=== PATIENT | male | born 1990 ===

== ENCOUNTER 2016-10-19 03:41 | Emergency (ER) | payer OTHER ==
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
[2016-10-19] MEDS ORDERED: Oxycodone/Acetaminophen 5/325 mg Tab PO STA (04:58)
[2016-10-19] MEDS ORDERED: Oxycodone/Acetaminophen 5/325 mg Tab ONE (05:02)
[2016-10-19 05:06] VITALS: BP 136/89; PULSE 96; RESP 16; TEMP 98.4
[2016-10-19 05:41] VITALS: O2SAT 99
--- NOTE | 2016-10-19 09:55 | RAD ---
PROCEDURE: Left Hand Radiographs. HISTORY: trauma COMPARISON: None. FINDINGS: BONES: Fracture base 4th metatarsal with the small fragment seen dorsally and proximally. There appears to be dorsal dislocation of the 4th metacarpal with respect to the hamate bone. . In addition, there appears to be a fracture of the base of the 5th metatarsal as well. JOINTS: Normal. No osteoarthritic changes. SOFT TISSUES: Normal. OTHER FINDINGS: None. IMPRESSION: Fracture base of the 4th metatarsal with dorsal dislocation of the proximal aspect of the 4th metatarsal with respect to the hamate bone. In addition, there also appears to be fracture of the base of the 5th metatarsal. .
--- NOTE | 2016-10-19 16:10 | CT ---
PROCEDURE: CT scan of the left hand/ wrist 10/19/2016 HISTORY: left hand injury COMPARISON: Correlation made with concurrent radiographs left hand TECHNIQUE: Contiguous helical/ transaxial sections of the left hand wrist performed. Additional 2 dimensional sagittal and coronal reformats provided. Radiation dose: Total exam DLP = 219.03 mGy-cm. This CT exam was performed using one or more of the following dose reduction techniques: Automated exposure control, adjustment of the mA and/or kV according to patient size, and/or use of iterative reconstruction technique. FINDINGS: The current study reveals comminuted impacted intra-articular fracture base of the 4th metacarpal with dorsal subluxation/ dislocation of the proximal 4th metacarpal with respect to the hamate. Also appears to be mild impaction of the dorsal distal cortical surface of the hamate abutting the dislocated base 5th metacarpal with tiny fracture fragments which could be from the hamate however small fragments arising from the base of the 5th metacarpal not excluded. There is surrounding/ adjacent soft tissue swelling with infiltration/edema fluid and possibly a small amount of subcutaneous hemorrhage within the soft most pronounced dorsally. IMPRESSION: Fracture base of the 4th metacarpal with dorsal subluxation - dislocation. There also appears to be small impaction type fracture of the hamate with adjacent on bony fragments likely from the hamate however a possible impaction type fracture base of the 5th metacarpal not excluded. There is also appears to be dorsal dislocation of the 5th metacarpal. Surrounding soft tissue swelling as above. Consider followup MRI.
== END 2016-10-19 05:52 | disposition home or self-care (01) ==
LOC: C.ER 03:41
DX: S62.395A Other fracture of fourth metacarpal bone, left hand, initial encounter for closed fracture (principal); W22.8XXA Striking against or struck by other objects, initial encounter; Y92.410 Unspecified street and highway as the place of occurrence of the external cause

== ENCOUNTER 2016-10-20 15:55 | Emergency (ER) | payer OTHER ==
[2016-10-20 16:06] VITALS: BP 113/79; PULSE 96; RESP 18; TEMP 98.2; O2SAT 98
--- NOTE | 2016-10-20 16:46 | C.PDOC ---
Time Seen by Provider: 10/20/16 16:21 Chief Complaint (Nursing): Upper Extremity Problem/Injury Past Medical History Vital Signs: Last Vital Signs Temp 98.2 F 10/20/16 16:03 Pulse 96 H 10/20/16 16:03 Resp 18 10/20/16 16:03 BP 113/79 10/20/16 16:03 Pulse Ox 98 10/20/16 16:03 - Social History Hx Alcohol Use: Yes Hx Substance Use: No ED Course And Treatment O2 Sat by Pulse Oximetry: 98 Disposition - Disposition Referrals: Romulo Jones MD [Provisional Staff] - Disposition: HOME/ ROUTINE Disposition Time: 16:38 Condition: STABLE Additional Instructions: Follow up with the hand specialist in 2-3 days. Return to the emergency department at any time if symptoms persist or worsen. Instructions: Hand Fracture (ED)
[2016-10-20] MEDS ORDERED: Naproxen 550 mg Tab PO STA (16:49)
--- NOTE | 2016-10-20 16:49 | C.PDOC ---
History Of Present Illness 26 year old patient presents to the ED complaining of left hand pain s/p fracture that occurred 2 days ago. He also complains of an occasional tingling sensation. Patient was seen here yesterday. He had an x-ray done, left hand was splinted and discharged with a prescription for Tramadol. Patient denies any new injuries or taking medication for the pain. Patient states he tried Motrin and Tramadol, but there was no relief. He also states he did not follow up with orthopedics yet. Time Seen by Provider: 10/20/16 16:21 Chief Complaint (Nursing): Upper Extremity Problem/Injury History Per: Patient History/Exam Limitations: no limitations Onset/Duration Of Symptoms: Days (2) Current Symptoms Are (Timing): Still Present Quality: "Pain" Severity: Moderate Pain Scale Rating Of: 5 Exacerbating Factor(s): Movement Recent travel outside of the [place]: No Past Medical History Reviewed: Historical Data, Nursing Documentation, Vital Signs Vital Signs: Last Vital Signs Temp 98.2 F 10/20/16 16:03 Pulse 96 H 10/20/16 16:03 Resp 18 10/20/16 16:03 BP 113/79 10/20/16 16:03 Pulse Ox 98 10/20/16 17:21 Family History: States: Unknown Family Hx - Social History Hx Alcohol Use: Yes Hx Substance Use: No Review Of Systems Except As Marked, All Systems Reviewed And Found Negative. Musculoskeletal: Positive for: Hand Pain (left) Physical Exam - Physical Exam Appears: Non-toxic, No Acute Distress Skin: Warm, Dry Head: Atraumatic, Normacephalic Eye(s): bilateral: Normal Inspection, EOMI Nose: Normal Oral Mucosa: Moist Neck: Normal ROM, Supple Chest: Symmetrical Respiratory: No Accessory Muscle Use Extremity: No Normal ROM (decreased secondary to pain), Tenderness (left hand), Other (left hand: (+)tenderness and swelling diffusely to hand (-) no pallor (- ) skin uniform temperature (+)strong radial pulse (+)<2 seconds capillary refill ) Neurological/Psych: Oriented x3, Normal Sensation Gait: Steady ED Course And Treatment O2 Sat by Pulse Oximetry: 98 (room air) Pulse Ox Interpretation: Normal Progress Note: Reviewed CT and x-ray from 10/19/16. Patient's splint is intact. Splint was removed and reapplied by the ED diamond powder technician. Patient is instructed to follow up with orthopedic in 1-2 days. Return to ER if symptoms persist or worsen. Disposition - Disposition Referrals: Romulo Jones MD [Provisional Staff] - Disposition: HOME/ ROUTINE Disposition Time: 16:38 Condition: GOOD Additional Instructions: Follow up with the hand specialist in 2-3 days. Return to the emergency department at any time if symptoms persist or worsen. Prescriptions: Naproxen [Naprosyn] 1 tab PO BID PRN #20 tab PRN Reason: Pain Instructions: Hand Fracture (ED) - Clinical Impression Clinical Impression: Hand fracture - PA / ANIMAL CYTOLOGIST / Resident Statement MD/DO has reviewed & agrees with the documentation as recorded. - Scribe Statement The provider has reviewed the documentation as recorded by the Scribe Ning Patricio All medical record entries made by the Scribe were at my direction and personally dictated by me. I have reviewed the chart and agree that the record accurately reflects my personal performance of the history, physical exam, medical decision making, and the department course for this patient. I have also personally directed, reviewed, and agree with the discharge instructions and disposition.
[2016-10-20] MEDS ORDERED: Naproxen 550 mg Tab PO ONE (16:53)
== END 2016-10-20 17:29 | disposition home or self-care (01) ==
LOC: C.ER 15:55
DX: S62.92XG Unspecified fracture of left hand, subsequent encounter for fracture with delayed healing (principal); X58.XXXD Exposure to other specified factors, subsequent encounter

== ENCOUNTER 2016-10-28 15:56 | Emergency (ER) | payer OTHER ==
--- NOTE | 2016-10-28 17:09 | C.PDOC ---
History Of Present Illness The patient, a 26 y/o male, presents to the ED for evaluation of right hand pain s/p trauma which began around 1 week ago. Patient states he was evaluated in the ED on 10/19, dx with fx and was advised to follow up with hand specialist. Patient states he was unable to follow up as instructed because the hand specialist does not accept his insurance. Patient denies onset of any new symptoms and states his current symptoms have persisted since his last ED visit. Patient also denies fever, chills, change in sensation of right extremity , or any recent trauma. Time Seen by Provider: 10/28/16 16:29 Chief Complaint (Nursing): Upper Extremity Problem/Injury History Per: Patient History/Exam Limitations: no limitations Onset/Duration Of Symptoms: Days, Persistent Current Symptoms Are (Timing): Still Present Quality: "Pain" Additional History Per: Patient Past Medical History Reviewed: Historical Data, Nursing Documentation, Vital Signs Vital Signs: Last Vital Signs Temp 98.9 F 10/28/16 17:32 Pulse 75 10/28/16 17:32 Resp 18 10/28/16 17:32 BP 130/71 10/28/16 17:32 Pulse Ox 97 10/28/16 19:43 - Medical History PMH: No Chronic Diseases Surgical History: No Surg Hx Family History: States: Unknown Family Hx - Social History Hx Alcohol Use: Yes Hx Substance Use: No - Immunization History Hx Tetanus Toxoid Vaccination: Yes Hx Influenza Vaccination: No Hx Pneumococcal Vaccination: No Review Of Systems Except As Marked, All Systems Reviewed And Found Negative. Constitutional: Negative for: Fever, Chills Musculoskeletal: Positive for: Hand Pain (right ) Neurological: Negative for: Weakness, Numbness Physical Exam - Physical Exam Appears: Non-toxic, No Acute Distress Skin: Warm, Dry, No Pale, Ecchymosis (diffuse to right hand ), No Other (no erythema to right hand ) Head: Atraumatic, Normacephalic Eye(s): bilateral: Normal Inspection, EOMI Oral Mucosa: Moist Neck: Supple Chest: Symmetrical Respiratory: No Accessory Muscle Use Extremity: No Normal ROM (decreased secondary to pain), Tenderness (diffuse to right hand ), Capillary Refill (less than 2 seconds ), Swelling (diffuse to right hand ), Other ((-) pallor (-) chagne in sensation (+) strong pulses) Pulses: Left Radial: Normal, Right Radial: Normal Neurological/Psych: Oriented x3, Normal Speech, Normal Cognition, Normal Motor, Normal Sensation Gait: Steady ED Course And Treatment O2 Sat by Pulse Oximetry: 97 (on RA) Pulse Ox Interpretation: Normal Progress Note: Patient received Ultram PO. Splint was reapplied to the affected area by sonography technician. Patient is stable for discharge and states he will be able to follow up with clinic tomorrow. He is advised to return to ED if symptoms worsen. Reassessment Condition: Improved Disposition - Disposition Referrals: [facility] [Outside] [facility] [Outside] Disposition: HOME/ ROUTINE Disposition Time: 17:08 Condition: STABLE Additional Instructions: REst, ice and elevate the hand. Follow up with hand specialist tomorrow as scheduled. 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 - Scribe Statement The provider has reviewed the documentation as recorded by the Scribe (Pia Patricio) All medical record entries made by the Scribe were at my direction and personally dictated by me. I have reviewed the chart and agree that the record accurately reflects my personal performance of the history, physical exam, medical decision making, and the department course for this patient. I have also personally directed, reviewed, and agree with the discharge instructions and disposition.
[2016-10-28 17:34] VITALS: BP 130/71; PULSE 75; RESP 18; TEMP 98.9
[2016-10-28 19:35] VITALS: O2SAT 97
== END 2016-10-28 17:32 | disposition home or self-care (01) ==
LOC: C.ER 15:56
DX: S62.91XD Unspecified fracture of right hand, subsequent encounter for fracture with routine healing (principal); X58.XXXD Exposure to other specified factors, subsequent encounter

== ENCOUNTER 2016-11-08 14:20 | Emergency (ER) | payer MEDICAID, OTHER ==
[2016-11-08 14:25] VITALS: BMI 22.7
[2016-11-08 14:26] VITALS: BP 125/86; PULSE 90; RESP 18; TEMP 97.6; O2SAT 100
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
== END 2016-11-08 15:21 | disposition home or self-care (01) ==
LOC: C.ER 14:20
DX: S62.92XD Unspecified fracture of left hand, subsequent encounter for fracture with routine healing (principal); X58.XXXD Exposure to other specified factors, subsequent encounter

== ENCOUNTER 2016-11-15 14:16 | Emergency (ER) | payer MEDICAID, OTHER ==
[2016-11-15 14:16] VITALS: BMI 22.7
[2016-11-15 14:25] VITALS: BP 118/77; PULSE 80; RESP 16; TEMP 98; O2SAT 98
--- NOTE | 2016-11-15 14:36 | C.PDOC ---
History Of Present Illness 26 y/o male, presents to the ED for requesting splint change. Patient states he was evaluated in the ED on 10/19, diagnosed with hand fracture and was advised to follow up with hand specialist. Patient states he was unable to follow up because of lack of insurance. Patient has applied for [facility] and finally got approval today, he wants to see hand specialist. Patient denies onset of any new symptoms. Patient also denies fever, chills, change in sensation of right extremity, or any recent trauma. Time Seen by Provider: 11/15/16 14:34 Chief Complaint (Nursing): Upper Extremity Problem/Injury History Per: Patient Onset/Duration Of Symptoms: Days Current Symptoms Are (Timing): Still Present Past Medical History Reviewed: Historical Data, Nursing Documentation, Vital Signs Vital Signs: Last Vital Signs Temp 98 F 11/15/16 14:24 Pulse 80 11/15/16 14:24 Resp 16 11/15/16 14:24 BP 118/77 11/15/16 14:24 Pulse Ox 98 11/15/16 15:17 - Medical History PMH: No Chronic Diseases Family History: States: No Known Family Hx - Social History Hx Alcohol Use: Yes Hx Substance Use: No - Immunization History Hx Tetanus Toxoid Vaccination: Yes Hx Influenza Vaccination: No Hx Pneumococcal Vaccination: No Review Of Systems Except As Marked, All Systems Reviewed And Found Negative. Constitutional: Negative for: Fever Gastrointestinal: Negative for: Vomiting Musculoskeletal: Positive for: Hand Pain (fracture, prior.) Physical Exam - Physical Exam Appears: Non-toxic, No Acute Distress Skin: Warm, Dry, No Rash Head: Atraumatic, Normacephalic Eye(s): bilateral: Normal Inspection Neck: Normal ROM Respiratory: No Accessory Muscle Use Extremity: Other ( tenderness to left hand dorsal 4th metacarpal area, no swelling, normal strong pulse, normal ROM) ED Course And Treatment O2 Sat by Pulse Oximetry: 98 Pulse Ox Interpretation: Normal Medical Decision Making Medical Decision Making: Orthoglass ulnar gutter splint applied by CP and checked by me Patient was instructed he needs to follow up in [facility] clinic to see erp specialist. Provide number for clinic. Patient verbalized understanding. Patient is asking for more pain meds Tylenol with codeine. Review [facility] Patient has prior narcotic meds dispensed and this is 4th ER visit for same complaint of hand fracture. I explain to patient narcotic medication policy and instruct he must follow up with orthopedic in clinic. May take NSAID for pain 11/08/2016 ACETAMINOPHEN-COD #3 TABLET #20.0 10/28/2016 TRAMADOL HCL 50 MG TABLET #14.0 10/19/2016 TRAMADOL HCL 50 MG TABLET #20 Disposition Counseled Patient/Family Regarding: Diagnosis, Need For Followup - Disposition Referrals: [facility] [Outside] [facility] [Outside] Disposition: HOME/ ROUTINE Disposition Time: 15:12 Condition: STABLE Additional Instructions: Follow up with the [facility] to see erp specialist. You must call to make appointment You may call [facility] for any assistance [phone]. Instructions: Boxer Fracture (ED) - POA Present On Arrival: None - Clinical Impression Clinical Impression: Aftercare for cast or splint check or change - Scribe Statement The provider has reviewed the documentation as recorded by the Hiteshibcourtney Andrade All medical record entries made by the Scribe were at my direction and personally dictated by me. I have reviewed the chart and agree that the record accurately reflects my personal performance of the history, physical exam, medical decision making, and the department course for this patient. I have also personally directed, reviewed, and agree with the discharge instructions and disposition.
== END 2016-11-15 15:19 | disposition home or self-care (01) ==
LOC: C.ER 14:16
DX: S62.395D Other fracture of fourth metacarpal bone, left hand, subsequent encounter for fracture with routine healing (principal); X58.XXXD Exposure to other specified factors, subsequent encounter

== ENCOUNTER 2016-12-27 13:37 | Emergency (ER) | payer MEDICAID ==
[2016-12-27 13:38] VITALS: BMI 22.7
[2016-12-27 13:52] VITALS: RESP 18; O2SAT 100
[2016-12-27 15:31] VITALS: BP 104/70; PULSE 62; TEMP 98.2
--- NOTE | 2016-12-27 15:59 | C.PDOC ---
History Of Present Illness Patient is a 26 year old male who presents to the ER with a complaint of left hand pain for the past 2 months; requesting for splint to be reapplied. Patient fractured left hand in the beginning of September of this year, told to follow up with hand clinic but had not been able to due to insurance issues. Patient states he received insurance 2 weeks ago and still has not followed up until today; they told him to appear on Friday for blood work. Denies recent injury, weakness, or numbness. Time Seen by Provider: 12/27/16 14:06 Chief Complaint (Nursing): Upper Extremity Problem/Injury History Per: Patient History/Exam Limitations: no limitations Onset/Duration Of Symptoms: Days (2 months) Current Symptoms Are (Timing): Still Present Exacerbating Factor(s): Strenuous Use Of Affected Area Recent travel outside of the [place]: No Past Medical History Reviewed: Historical Data, Nursing Documentation, Vital Signs Vital Signs: Last Vital Signs Temp 98.2 F 12/27/16 15:31 Pulse 62 12/27/16 15:31 Resp 18 12/27/16 15:31 BP 104/70 12/27/16 15:31 Pulse Ox 100 12/27/16 16:31 - Medical History PMH: No Chronic Diseases Surgical History: No Surg Hx Family History: States: Unknown Family Hx - Social History Hx Alcohol Use: Yes Hx Substance Use: No - Immunization History Hx Tetanus Toxoid Vaccination: No Hx Influenza Vaccination: No Hx Pneumococcal Vaccination: No Review Of Systems Musculoskeletal: Positive for: Hand Pain (Left) Neurological: Negative for: Weakness, Numbness Physical Exam - Physical Exam Appears: Non-toxic, No Acute Distress Skin: Normal Color, Warm, Dry Head: Atraumatic, Normacephalic Oral Mucosa: Moist Extremity: Swelling (Medial aspect of left hand), Other (Skin breakdown noted along area of splint. (splint was removed prior to appearance in ED)) Pulses: Left Radial: Normal, Right Radial: Normal Neurological/Psych: Oriented x3, Normal Speech, Normal Cognition ED Course And Treatment O2 Sat by Pulse Oximetry: 100 (Room air) Pulse Ox Interpretation: Normal Progress Note: Splint was reapplied, patient strongly advised to follow up with clinic on Friday or hand surgeon, information was provided on discharge paperwork. Patient understands the risk of not following up which includes malunion and/or deformity; states he will follow up in 2 days. Disposition - Disposition Referrals: [facility] [Outside] Nazario Spears MD [Staff Provider] - Disposition: HOME/ ROUTINE Disposition Time: 14:50 Condition: GOOD Additional Instructions: Thank you for letting us take care of you today. Your provider was Dr. Graham. You were treated for an old hand fracture. The emergency medical care you received today was directed at your acute symptoms. If you were prescribed any medication, please fill it and take as directed. It may take several days for your symptoms to resolve. Return to the Emergency Department if your symptoms worsen, do not improve, or if you have any other problems. Please contact your doctor or call one of the physicians/clinics you have been referred to that are listed on the Patient Visit Information form that is included in your discharge packet. Bring any paperwork you were given at discharge with you along with any medications you are taking to your follow up visit. Our treatment cannot replace ongoing medical care by a primary care provider (PCP) outside of the emergency department. Thank you for allowing the [facility] team to be part of your care today. FOLLOW UP WITH THE CLINIC ON FRIDAY FOR EVALUATION. YOU NEED TO SEE A HAND SPECIALIST SOON POSSIBLE. PLEASE CALL THE OTHER DOCTOR IF THE CLINIC CANNOT SEE YOU IN 3-4 DAYS. Instructions: Hand Fracture (ED), Splint Care (ED) - Clinical Impression Clinical Impression: Hand fracture - Scribe Statement The provider has reviewed the documentation as recorded by the Scribcourtney Cullen All medical record entries made by the Scribe were at my direction and personally dictated by me. I have reviewed the chart and agree that the record accurately reflects my personal performance of the history, physical exam, medical decision making, and the department course for this patient. I have also personally directed, reviewed, and agree with the discharge instructions and disposition.
--- NOTE | 2016-12-27 16:02 | RAD ---
PROCEDURE: Left Hand Radiographs. HISTORY: hand fx 2 months ago - did not follow up COMPARISON: 10/19/2016 FINDINGS: BONES: Healing fracture base of 4th metacarpal. There is questionable dorsal subluxation/ dislocation at the 4th and 5th carpal -metacarpal articulations there is a questionable mildly displaced fracture of the hamate. This involves the lateral aspect of the hamate and not the hamate hook. . No other fracture identified. JOINTS: As above. SOFT TISSUES: Normal. OTHER FINDINGS: None. IMPRESSION: Healing fracture base of 4th metacarpal. No definite 5th metacarpal fracture identified. Question of dorsal subluxation/dislocation at the 4th and 5th carpal -metacarpal articulations. Possible displaced fracture of the hamate.
== END 2016-12-27 15:35 | disposition home or self-care (01) ==
LOC: C.ER 13:37
DX: S62.305A Unspecified fracture of fourth metacarpal bone, left hand, initial encounter for closed fracture (principal); X58.XXXA Exposure to other specified factors, initial encounter